=== PATIENT | female | born 1970 | race Caucasian/White ===

== ENCOUNTER 2023-01-18 09:12 | Day surgery (SDC) | payer BC ==
[2023-01-17 09:01] VITALS: BMI 24.2
[2023-01-18] MEDS ORDERED: EPINEPHrine 1 MG/ML AMP ONE (10:06)
[2023-01-18] MEDS ORDERED: Lidocaine 1% (PF) 30 ML VIAL ONE (10:06)
[2023-01-18] MEDS ORDERED: fentaNYL PF 100 MCG/2 ML SYRINGE ONE ×2 (10:11)
[2023-01-18] MEDS ORDERED: Scopolamine 1.5 mg/72 hour Patch ONE (10:23)
[2023-01-18] MEDS ORDERED: Lidocaine 1% PF 5 ML VIAL ONE (11:03)
[2023-01-18] MEDS ORDERED: PHENYLEPHRINE-NS 100 MCG/ML 10 ML SYRINGE ONE (11:03)
[2023-01-18] MEDS ORDERED: Ondansetron PF 4 MG/2 ML Vial ONE (11:03)
[2023-01-18] MEDS ORDERED: Dexamethasone 20 MG/5 ML VIAL ONE (11:03)
[2023-01-18] MEDS ORDERED: ePHEDrine 50 MG/ML VIAL ONE (11:03)
[2023-01-18] MEDS ORDERED: Rocuronium Bromide 10 MG/ML (10ML VIAL) ONE (11:03)
[2023-01-18] MEDS ORDERED: PROPOFOL 200 MG/20 ML VIAL ONE (11:03)
== END 2023-01-18 13:10 | disposition home or self-care (01) ==
LOC: SDC 09:12
PROVIDERS: ATTEND Otolaryngology Plastic Surgery within the Head & Neck
PROC: 0CB90ZZ Excision of Left Parotid Gland, Open Approach (ICD-10-PCS; principal; 2023-01-18)
DX: D11.0 Benign neoplasm of parotid gland (principal); Z85.3 Personal history of malignant neoplasm of breast; Z88.1 Allergy status to other antibiotic agents; Z88.2 Allergy status to sulfonamides
CPT/HCPCS: 85014; 88307; 88341; 88342; 93005; 93010; C1776; J0171; J1100; J2001; J2405; J2704; J3490